=== PATIENT | female | born 1990 | race Caucasian/White ===

== ENCOUNTER 2023-12-24 10:13 | Emergency (ER) | payer OTHER, SELFPAY ==
[2023-12-24 10:28] VITALS: BP 155/115
[2023-12-24 11:07] VITALS: BMI 27.4
[2023-12-24 11:11] VITALS: BP 144/99
[2023-12-24 12:02] VITALS: BP 136/100
[2023-12-24 12:12] LABS: % Basophils 0.1 % (0-2); % Immature Granulocytes 0.5 % (0-0.5); % Lymphocytes 8.8 % (20.5-51.1); % Monocytes 9.5 % (1.7-9.3); % Neutrophils 81.1 % (42.2-75.2); Absolute Immature Granulocytes 0.1 10^3/uL (0-0.05); Absolute Lymphocytes 0.9 10^3/uL (1.2-3.4); Absolute Neutrophils 8.3 10^3/uL (1.4-6.5); Hematocrit 38.2 % (37.0-47.0); Hemoglobin 12.3 g/dL (12.0-16.0); Mean Corp Hgb Conc. 32.2 g/dL (33.0-37.0); Mean Corpuscular Hgb 32.4 pg (27.0-31.0); Mean Corpuscular Volume 100.5 fL (81.0-99.0); Mean Platelet Volume 8.8 fL (7.4-10.4); Nucleated Red Blood Cells % 0 %; Platelet Count 268 10^3/uL (130-400); Red Cell Dist. Width 12.9 % (11.5-14.5); White Blood Cell Count 10.2 10^3/uL (4.8-10.8)
[2023-12-24 12:26] LABS: ALT (SGPT) 60 U/L (0-35); AST (SGOT) 77 U/L (14-36); Albumin 4.3 g/dl (3.5-5.0); Alkaline Phosphatase 67 U/L (38-126); Blood Urea Nitrogen 15 mg/dl (7-17); Calcium 9.8 mg/dl (8.4-10.2); Carbon Dioxide 26 mmol/L (22-30); Chloride 100 mmol/L (98-107); Estimated Creatinine Clearance 111 ml/min; Glucose 77 mg/dl (70-99); Potassium 4.3 mmol/L (3.5-5.1); Sodium 137 mmol/L (135-145); Total Bilirubin 0.3 mg/dl (0.2-1.3); Total Protein 7.3 g/dl (6.3-8.2); eGFR > 60.00
[2023-12-24 13:00] VITALS: BP 113/87
--- NOTE | 2023-12-24 13:32 | ED.GENMED ---
History of Present Illness
General
Chief Complaint: Numbness
Source: patient
Exam Limitations: none
Time Seen by Provider: 12/24/23 11:15
Travel History
Have you had any contact with someone who has COVID-19?: No
Do you have any symptoms of coronavirus? Fever > 100 degrees, chills, cough, shortness of breath, sore throat, loss of taste or smell, muscle aches, or headache?: No
History of Present Illness
History of Present Illness:
33-year-old female who presents with numbness to her left foot. She states a little bit in the left anterior pruett but down to the top of her left foot. No other symptoms. Denies any symptoms in the right lower extremity. No symptoms in the
proximal leg. No symptoms in the upper extremities. No facial symptoms. Patient missed that last night she was drinking with a friend and also took 2 Percocet. The patient does admit to a history of anxiety and is on Xanax. She denies pain.
She denies motor weakness. No low back pain
Past History
Past History
ED Past Medical History: Psychiatric (Anxiety, depression, PTSD)
Social History
Alcohol: Occasional
Phy Exam
Physical Exam
Physical Exam:
CONSTITUTIONAL Patient alert and oriented to person, place and time. Well-appearing. Vital signs reviewed.
HEAD atraumatic, normocephalic.
EYES eyelids normal to inspection, Pupils equally round and reactive to light, Extraocular muscles intact, Conjunctiva normal, Sclera normal.
NECK normal range of motion, Trachea midline, no jugular venous distention.
RESPIRATORY CHEST No respiratory distress noted, Chest expansion equal
BACK normal inspection, no obvious deformities
UPPER EXTREMITY range of motion normal, Motor strength normal, no cyanosis, no edema.
LOWER EXTREMITY range of motion normal, Motor strength normal, no cyanosis, no edema. Normal bilateral dorsalis pedis pulses. Feet bilaterally are warm and well-perfused. She reports gross numbness to touch in the dorsal portion of the left foot
and the lateral and anterior portion of the left lower extremity. Calf and medial aspect of the lower extremity is normal. The calcaneus is normal to touch and the medial aspect of the left foot is normal to touch (normal sensation)
NEURO Speech normal, No focal motor deficits, [place] coma scale 15, Memory normal, Cranial Nerves intact to screening exam.
SKIN skin warm, dry, and normal in color.
PSYCHIATRIC patient oriented to person place and time, Normal affect.
Course
Orders/Labs/Results
Orders:
Orders
12/24/23 11:52
Complete Blood Count/With Diff Urgent
Comprehensive Metabolic Panel Urgent
Abnormal Lab Results
12/24/23
11:52
RBC 3.80 L 10^6/uL
(4.20-5.40)
MCV 100.5 H fL
(81.0-99.0)
MCH 32.4 H pg
(27.0-31.0)
MCHC 32.2 L g/dL
(33.0-37.0)
Abs Immat Gran (auto) 0.1 H 10^3/uL
(0-0.05)
Absolute Neuts (auto) 8.3 H 10^3/uL
(1.4-6.5)
Absolute Lymphs (auto) 0.9 L 10^3/uL
(1.2-3.4)
Absolute Monos (auto) 1.0 H 10^3/uL
(0.1-0.6)
Neutrophils % 81.1 H %
(42.2-75.2)
Lymphocytes % 8.8 L %
(20.5-51.1)
Monocytes % 9.5 H %
(1.7-9.3)
AST 77 H U/L
(14-36)
ALT 60 H U/L
(0-35)
12/24/23 11:52
12/24/23 11:52
Vital Signs
Initial and Last Documented VS:
Initial Vital Signs
Temp Pulse Resp BP Pulse Ox
98.5 F 134 20 155/115 97
12/24/23 10:28 12/24/23 10:28 12/24/23 10:28 12/24/23 10:28 12/24/23 10:28
Last Documented Vital Signs
Temp Pulse Resp BP Pulse Ox
98.5 F 113 12 113/87 92
12/24/23 10:28 12/24/23 13:15 12/24/23 13:15 12/24/23 13:00 12/24/23 13:15
MDM/Problems Addressed
MDM/Problems Addressed:
Numbness
*Pulse Oximetry
Patient hypoxic: no
*Critical Care Note
Total Time (30-74mins, 75-104mins- exclusive of procedures): Not Applicable
Data Reviewed
Source: patient
Further Testing Considered But Not Given:
Consider low back or brain imaging but symptoms are very localized to left lower extremity nerve distribution
Patient Management
Escalation/DeEscalation of care consider admission/obs:
Question whether this is neuropraxia (sensory) as there is no other findings and no motor findings. She has normal perfusion. She did take Percocet last night. She also admits her cat slept on her legs. For now I recommended monitoring as
outpatient. Anticipate improvement over the next 24 to 48 hours. Recommended PCP follow-up for further workup if symptoms persist. No clinical indication for imaging as I do not suspect cauda equina syndrome or brain related cause.
ED Attending Note
-
Portions of this chart may have been created with voice recognition software.� Occasional wrong word or��sound alike� substitutions may have occurred due to the inherent limitations of voice recognition software.
Discharge Plan
Departure
Patient Disposition: Home (Routine Discharge)
Date of Disposition: 12/24/23
Time of Disposition: 13:39
Patient with high blood pressure during this ER visit?: Yes
Discharge Problem:
Paresthesia
Instructions: Paresthesia (DC), BLOOD PRESSURE
Referrals:
Christopher Lara DO [Family Provider] -
Activity Restrictions/Additional Instructions:
Please see your doctor in the next 3 to 5 days for follow-up and reevaluation. Return immediately for worsening symptoms, numbness that is progressive, motor weakness, or any other concerns. If symptoms persist, further workup including an MRI may
be necessary.
Interventions
Interventions:
*Risk Screen - Suicide Last Done: 12/24/23 11:07
*General Assessment Last Done: 12/24/23 11:07
*Neglect/Abuse Screening Last Done: 12/24/23 11:07
ED- Fall Risk Assessment Last Done: 12/24/23 11:07
*ED COVID-19 Vaccine History Last Done: 12/24/23 10:28
ED- Neurological Assessment Last Done: 12/24/23 11:07
Discharge Date and Time
Print Language: BAHAMIAN
== END 2023-12-24 14:01 | disposition home or self-care (01) ==
LOC: EMR 10:13
PROVIDERS: EMERGENCY PHYSICIAN Emergency Medicine; FAMILY PHYSICIAN Family Medicine
DX: R20.2 Paresthesia of skin (principal); F41.9 Anxiety disorder, unspecified; F32.A Depression, unspecified; F43.10 Post-traumatic stress disorder, unspecified
CPT/HCPCS: 99283; 80053; 85025

== ENCOUNTER 2023-12-25 16:55 | Inpatient (IN) | payer OTHER, SELFPAY ==
[2023-12-25] VITALS (7 sets, daily range): BP systolic 133–172; BP diastolic 91–119; BMI 26.4
[2023-12-25 13:12] LABS: % Basophils 0.4 % (0-2); % Eosinophils 0.1 % (0-6); % Immature Granulocytes 0.3 % (0-0.5); % Lymphocytes 14.2 % (20.5-51.1); % Monocytes 8.8 % (1.7-9.3); % Neutrophils 76.2 % (42.2-75.2); Absolute Basophils 0.1 10^3/uL (0-0.2); Absolute Lymphocytes 1.8 10^3/uL (1.2-3.4); Absolute Monocytes 1.1 10^3/uL (0.1-0.6); Absolute Neutrophils 9.6 10^3/uL (1.4-6.5); Hematocrit 36.8 % (37.0-47.0); Hemoglobin 12.5 g/dL (12.0-16.0); Mean Corpuscular Hgb 32.4 pg (27.0-31.0); Mean Corpuscular Volume 95.3 fL (81.0-99.0); Mean Platelet Volume 8.6 fL (7.4-10.4); Nucleated Red Blood Cells % 0 %; Platelet Count 276 10^3/uL (130-400); Red Blood Cell Count 3.86 10^6/uL (4.20-5.40); Red Cell Dist. Width 12.6 % (11.5-14.5); White Blood Cell Count 12.7 10^3/uL (4.8-10.8)
[2023-12-25 13:22] LABS: HCG, Serum Qualitative Screen Negative
[2023-12-25 13:24] LABS: ALT (SGPT) 57 U/L (0-35); AST (SGOT) 47 U/L (14-36); Alkaline Phosphatase 75 U/L (38-126); Blood Urea Nitrogen 7 mg/dl (7-17); Calcium 9.4 mg/dl (8.4-10.2); Carbon Dioxide 24 mmol/L (22-30); Chloride 99 mmol/L (98-107); Glucose 106 mg/dl (70-99); Potassium 3.8 mmol/L (3.5-5.1); Sodium 131 mmol/L (135-145); Total Bilirubin 0.4 mg/dl (0.2-1.3); eGFR > 60.00
[2023-12-25 13:41] LABS: Troponin I 0.214 ng/ml
[2023-12-25 13:46] LABS: D-Dimer 0.43 ug/mlFEU (0.00-0.50)
--- NOTE | 2023-12-25 14:18 | ED.GENMED ---
History of Present Illness
<Louis Becker PA-C - Last Filed: 12/25/23 17:00>
General
Chief Complaint: Chest Pain
Source: patient
Time Seen by Provider: 12/25/23 12:45
Travel History
Have you had any contact with someone who has COVID-19?: No
Do you have any symptoms of coronavirus? Fever > 100 degrees, chills, cough, shortness of breath, sore throat, loss of taste or smell, muscle aches, or headache?: No
History of Present Illness
History of Present Illness:
33-year-old female with past medical history of anxiety, depression, PTSD presenting back to the emergency department after being seen in this emergency room yesterday for left foot paresthesia, notes that the paresthesia is improved however last
night into this morning she developed substernal chest pain that she states is unrelieved with position, palpation and worsens with deep inspiration or when laying reclined or on her neck. Patient denies any history of cardiac related issues. She
has no recent illnesses including any viral symptoms over the last few weeks. She denies any current fevers, chills, rigors, cough, hemoptysis, palpitations, lower extremity edema or pain. She does note father has a history of cardiac disease
although notes he has multiple medical conditions. She did not take anything for pain prior to arrival. No other concerns at this time.
Past History
<Louis Becker PA-C - Last Filed: 12/25/23 17:00>
Past History
ED Past Medical History: Psychiatric (Anxiety, depression, PTSD)
ED Past Surgical History: None
Social History
Tobacco: Vaping
Alcohol: Occasional
Drug: None
Personal: Single
Living: with family
Employment: Employed
Review of Systems
<Louis Becker PA-C - Last Filed: 12/25/23 17:00>
Review of Systems
All Other Systems: ROS reviewed and negative except as documented in HPI and ROS
Phy Exam
<Louis Becker PA-C - Last Filed: 12/25/23 17:00>
Physical Exam
Physical Exam:
GENERAL: Alert , in no apparent distress
EYE: conjunctiva clear
NECK: Supple
ENT: o/p clr, mmm.
CARDIAC: Regular rate and rhythm
LUNGS: Clear breath sounds bilaterally, no acute respiratory distress, no wheezes/rales/rhonchi, chest wall no focal tenderness
Abdomen: Soft, nontender, nondistended
NEUROLOGICAL: Alert and oriented
SKIN: Warm and dry, skin intact.
MUSCULOSKELETAL: well perfused. No edema
PSYCH: Normal and appropriate interaction.
Scores
<Louis Becker PA-C - Last Filed: 12/25/23 17:00>
Heart Failure Risk
Heart Failure Risk Score: Not Applicable
Heart Score for Chest Pain Patients
STEMI patient?: No
History: Moderately Suspicious
ECG: Nonspecific Repolarization
Age: </= 45 years
Risk Factors: 1 or 2 Risk Factors
Troponin: >1 - <3 x Normal Limit
Heart Score for Chest Pain Patients: 4
Heart Score Risk: 20.3% MACE over next 6 weeks
Withdrawal Assessment of Alcohol
Withdrawal Assessment Completed?: Not applicable
<Lenin Barrera MD - Last Filed: 12/26/23 08:50>
Heart Score for Chest Pain Patients
Heart Score for Chest Pain Patients: 4
Heart Score Risk: 20.3% MACE over next 6 weeks
Course
<Louis Becker PA-C - Last Filed: 12/25/23 17:00>
Orders/Labs/Results
Orders:
Orders
12/25/23 Breakfast
Regular
At Your Request: Full Participation
12/25/23 11:47
EKG [Electrocardiogram (*1)] Urgent
Reason for Study: Chest Pain
EKG- Treatment ONCE
12/25/23 12:47
Test Result ONCE
12/25/23 13:02
Complete Blood Count/With Diff Urgent
Comprehensive Metabolic Panel Urgent
D-Dimer Urgent
Folate Urgent
Comment: ADD
Free T4 Urgent
Comment: ADD
HCG, Serum Qualitative Screen Urgent
TSH Urgent
Troponin I Urgent
Vitamin B12 Urgent
Comment: ADD
12/25/23 13:45
Aspirin Chewable [Low Strength Aspirin] 324 mg PO NOW STA
12/25/23 13:46
Nitroglycerin Sublingual [Nitrostat (Sublingual)] 0.4 mg SL [id number] PRN
12/25/23 13:49
CT Chest Pe Study Urgent
Comment:
Reason For Exam: chest pain, elevated troponin
12/25/23 14:06
Electrocardiogram (*1) Urgent
Reason for Study: Chest Pain
EKG- Treatment ONCE
12/25/23 15:00
COVID-19 Antigen Urgent
Source: Nasal Swab
12/25/23 15:35
Echo 2D MMode Color/Doppler Urgent
Reason for Study: elevated troponin
12/25/23 15:51
Add On- LAB Urgent
Tests Added?: Free T4
12/25/23 16:23
Add On- LAB Routine
Tests Added?: vitamin b12, folic acid
12/25/23 16:36
Admit/Transfer Patient As Directed
Co-Sign Provider:
Level of Care: Inpatient admission
Assign to:: Telemetry
Physician / Group: Griffin
Diagnosis: Baldev Pain, Elevated Troponin
Reason for Telemetry: Chest Pain syndromes
Date to Stop Telemetry: 12/27/23
Time to Stop Telemetry: 11:00
Reason for Hospitalization: Cardiology consult
Expected length of stay greater than two midnights?: Yes
ELOS- Estimated Length of Stay in days: 3
I certify the patient meets the requirements for IP care: Yes
12/25/23 16:39
Code Status As Directed
Resuscitation Status: Full Code
12/25/23 16:52
Procalcitonin Urgent
PCT Algorithmm Indication: Respiratory
Troponin I Urgent
12/25/23 17:50
0.9% Sodium Chloride [Nss (Preservative Free)] See Protocol IV PRN PRN
Acetaminophen [Tylenol] 650 mg PO Q4HPRN PRN
FOLic ACID [Folvite] 1 mg 0.9% Sodium Chloride 50 ml [Nss] 50 ml IV DAILYPRN
Lorazepam [Ativan] 1 mg IV Q1HPRN PRN
Lorazepam [Ativan] 1 mg PO Q2HPRN PRN
Lorazepam [Ativan] 2 mg IV Q1HPRN PRN
12/25/23 17:50
CARDIOLOGY CONSULT Routine
Consulting Provider: Apolinar Alves
Was physician already notified: Yes
Case Management Consult Once
Case Management Consult: Other
Comment: Substance abuse counseling
DIETARY CONSULT Routine
Reason for Consult: Nutrition support, possible refeeding guidelines
Activity As Directed
Activity Level: Out of Bed-Early Mobility
With Assistance
I&O [Intake/ Output] As Directed
Frequency: q12h
MSAS SCORE As Directed
MSAS Score 0-4: Repeat MSAS every 2 hours until 0-4 for three consecutive assessments, then every 4 hours x 48
hours.
MSAS Score 5-7: For MILD withdrawl symptoms. Repeat MSAS and RASS every 2 hours
MSAS Score 8-11: For MODERATE withdrawal symptoms. Repeat MSAS and RASS every 1 hour. Consider ICU or IMU
level of care.
MSAS Score > 11: For SEVERE withdrawal symptoms. Repeat MSAS and RASS every 1 hour. Notify provider, consider
ICU level of care.
MSAS Additional Instructions: If no improvement or no decrease in score from severe to moderate within 12
hours, consult psychiatry
MSAS Notify Provider: Notify provider if patient requires more than 10 mg of Lorazepam in eight hour period.
Vital Signs As Directed
Frequency: Per unit guidelines
Weight As Directed
Frequency: Daily
DX Deep Vein Thrombosis Video Routine
12/25/23 18:00
Enoxaparin Sodium [Lovenox] 40 mg SC QPM
12/25/23 18:07
Urine Drug Abuse Screen Urgent
Date Specimen was Collected: 12/25/23
Time Specimen was Collected: 18:04
12/25/23 20:00
Thiamine Injection 200 mg IV Q12
12/25/23 22:00
Clonidine [Catapres] 0.1 mg PO HS
Venlafaxine [Effexor] 75 mg PO HS
12/26/23 05:02
Basic Metabolic Panel IN AM
Complete Blood Count/No Diff IN AM
Magnesium IN AM
12/26/23 08:00
Alprazolam [Xanax] 0.5 mg PO DAILY
FOLic ACID [Folvite] 1 mg PO DAILY
12/27/23 11:00
DC Protocol for Telemetry ONCE
12/28/23 20:00
Thiamine HCl [Vitamin B1] 100 mg PO BID
Abnormal Lab Results
12/25/23 12/25/23
13:02 16:52
WBC 12.7 H 10^3/uL
(4.8-10.8)
RBC 3.86 L 10^6/uL
(4.20-5.40)
Hct 36.8 L %
(37.0-47.0)
MCH 32.4 H pg
(27.0-31.0)
Absolute Neuts (auto) 9.6 H 10^3/uL
(1.4-6.5)
Absolute Monos (auto) 1.1 H 10^3/uL
(0.1-0.6)
Neutrophils % 76.2 H %
(42.2-75.2)
Lymphocytes % 14.2 L %
(20.5-51.1)
Sodium 131 L mmol/L
(135-145)
Glucose 106 H mg/dl
(70-99)
AST 47 H U/L
(14-36)
ALT 57 H U/L
(0-35)
Troponin I 0.214 H* ng/ml 0.163 H* ng/ml
Procalcitonin 0.73 H ng/ml
(0.0-0.25)
TSH 0.10 L uIU/ml
(0.47-4.68)
12/25/23 13:02
12/25/23 13:02
Vital Signs
Initial and Last Documented VS:
Initial Vital Signs
Temp Pulse Resp BP Pulse Ox
97.6 F 112 16 172/100 99
12/25/23 11:43 12/25/23 11:43 12/25/23 11:43 12/25/23 11:43 12/25/23 11:43
Last Documented Vital Signs
Temp Pulse Resp BP Pulse Ox
97.6 F 81 16 151/108 100
12/26/23 04:00 12/26/23 05:15 12/26/23 04:00 12/26/23 05:08 12/26/23 04:00
Independent Beauty Consultant consulted with Physician
Independent Beauty Consultant consulted with physician?: Yes
Name of Physician Consulted: oHlly
[place];Lenin Barrera MD - Last Filed: 12/26/23 08:50>
Orders/Labs/Results
Orders:
Orders
12/25/23 Breakfast
Regular
At Your Request: Full Participation
12/25/23 11:47
EKG [Electrocardiogram (*1)] Urgent
Reason for Study: Chest Pain
EKG- Treatment ONCE
12/25/23 12:47
Test Result ONCE
12/25/23 13:02
Complete Blood Count/With Diff Urgent
Comprehensive Metabolic Panel Urgent
D-Dimer Urgent
Folate Urgent
Comment: ADD
Free T4 Urgent
Comment: ADD
HCG, Serum Qualitative Screen Urgent
TSH Urgent
Troponin I Urgent
Vitamin B12 Urgent
Comment: ADD
12/25/23 13:45
Aspirin Chewable [Low Strength Aspirin] 324 mg PO NOW STA
12/25/23 13:46
Nitroglycerin Sublingual [Nitrostat (Sublingual)] 0.4 mg SL [id number] PRN
12/25/23 13:49
CT Chest Pe Study Urgent
Comment:
Reason For Exam: chest pain, elevated troponin
12/25/23 14:06
Electrocardiogram (*1) Urgent
Reason for Study: Chest Pain
EKG- Treatment ONCE
12/25/23 15:00
COVID-19 Antigen Urgent
Source: Nasal Swab
12/25/23 15:35
Echo 2D MMode Color/Doppler Urgent
Reason for Study: elevated troponin
12/25/23 15:51
Add On- LAB Urgent
Tests Added?: Free T4
12/25/23 16:23
Add On- LAB Routine
Tests Added?: vitamin b12, folic acid
12/25/23 16:36
Admit/Transfer Patient As Directed
Co-Sign Provider:
Level of Care: Inpatient admission
Assign to:: Telemetry
Physician / Group: Griffin
Diagnosis: Baldev Pain, Elevated Troponin
Reason for Telemetry: Chest Pain syndromes
Date to Stop Telemetry: 12/27/23
Time to Stop Telemetry: 11:00
Reason for Hospitalization: Cardiology consult
Expected length of stay greater than two midnights?: Yes
ELOS- Estimated Length of Stay in days: 3
I certify the patient meets the requirements for IP care: Yes
12/25/23 16:39
Code Status As Directed
Resuscitation Status: Full Code
12/25/23 16:52
Procalcitonin Urgent
PCT Algorithmm Indication: Respiratory
Troponin I Urgent
12/25/23 17:50
0.9% Sodium Chloride [Nss (Preservative Free)] See Protocol IV PRN PRN
Acetaminophen [Tylenol] 650 mg PO Q4HPRN PRN
FOLic ACID [Folvite] 1 mg 0.9% Sodium Chloride 50 ml [Nss] 50 ml IV DAILYPRN
Lorazepam [Ativan] 1 mg IV Q1HPRN PRN
Lorazepam [Ativan] 1 mg PO Q2HPRN PRN
Lorazepam [Ativan] 2 mg IV Q1HPRN PRN
12/25/23 17:50
CARDIOLOGY CONSULT Routine
Consulting Provider: Apolinar Alves
Was physician already notified: Yes
Case Management Consult Once
Case Management Consult: Other
Comment: Substance abuse counseling
DIETARY CONSULT Routine
Reason for Consult: Nutrition support, possible refeeding guidelines
Activity As Directed
Activity Level: Out of Bed-Early Mobility
With Assistance
I&O [Intake/ Output] As Directed
Frequency: q12h
MSAS SCORE As Directed
MSAS Score 0-4: Repeat MSAS every 2 hours until 0-4 for three consecutive assessments, then every 4 hours x 48
hours.
MSAS Score 5-7: For MILD withdrawl symptoms. Repeat MSAS and RASS every 2 hours
MSAS Score 8-11: For MODERATE withdrawal symptoms. Repeat MSAS and RASS every 1 hour. Consider ICU or IMU
level of care.
MSAS Score > 11: For SEVERE withdrawal symptoms. Repeat MSAS and RASS every 1 hour. Notify provider, consider
ICU level of care.
MSAS Additional Instructions: If no improvement or no decrease in score from severe to moderate within 12
hours, consult psychiatry
MSAS Notify Provider: Notify provider if patient requires more than 10 mg of Lorazepam in eight hour period.
Vital Signs As Directed
Frequency: Per unit guidelines
Weight As Directed
Frequency: Daily
DX Deep Vein Thrombosis Video Routine
12/25/23 18:00
Enoxaparin Sodium [Lovenox] 40 mg SC QPM
12/25/23 18:07
Urine Drug Abuse Screen Urgent
Date Specimen was Collected: 12/25/23
Time Specimen was Collected: 18:04
12/25/23 20:00
Thiamine Injection 200 mg IV Q12
12/25/23 22:00
Clonidine [Catapres] 0.1 mg PO HS
Venlafaxine [Effexor] 75 mg PO HS
12/26/23 05:02
Basic Metabolic Panel IN AM
Complete Blood Count/No Diff IN AM
Magnesium IN AM
12/26/23 08:00
Alprazolam [Xanax] 0.5 mg PO DAILY
FOLic ACID [Folvite] 1 mg PO DAILY
12/27/23 11:00
DC Protocol for Telemetry ONCE
12/28/23 20:00
Thiamine HCl [Vitamin B1] 100 mg PO BID
Abnormal Lab Results
12/25/23 12/25/23
13:02 16:52
WBC 12.7 H 10^3/uL
(4.8-10.8)
RBC 3.86 L 10^6/uL
(4.20-5.40)
Hct 36.8 L %
(37.0-47.0)
MCH 32.4 H pg
(27.0-31.0)
Absolute Neuts (auto) 9.6 H 10^3/uL
(1.4-6.5)
Absolute Monos (auto) 1.1 H 10^3/uL
(0.1-0.6)
Neutrophils % 76.2 H %
(42.2-75.2)
Lymphocytes % 14.2 L %
(20.5-51.1)
Sodium 131 L mmol/L
(135-145)
Glucose 106 H mg/dl
(70-99)
AST 47 H U/L
(14-36)
ALT 57 H U/L
(0-35)
Troponin I 0.214 H* ng/ml 0.163 H* ng/ml
Procalcitonin 0.73 H ng/ml
(0.0-0.25)
TSH 0.10 L uIU/ml
(0.47-4.68)
12/25/23 13:02
12/25/23 13:02
Vital Signs
Initial and Last Documented VS:
Initial Vital Signs
Temp Pulse Resp BP Pulse Ox
97.6 F 112 16 172/100 99
12/25/23 11:43 12/25/23 11:43 12/25/23 11:43 12/25/23 11:43 12/25/23 11:43
Last Documented Vital Signs
Temp Pulse Resp BP Pulse Ox
97.6 F 81 16 151/108 100
12/26/23 04:00 12/26/23 05:15 12/26/23 04:00 12/26/23 05:08 12/26/23 04:00
<Louis Becker PA-C - Last Filed: 12/25/23 17:00>
MDM/Problems Addressed
Differential Diagnosis Includes:
Pleurisy or muscular etiology, PE considered given patient does vape as well as takes oral contraceptive pills, less risk factors for ACS, hypertensive urgency
MDM/Problems Addressed:
33-year-old female presenting emergency department for evaluation of chest pain that began earlier this morning/yesterday evening. Seen in this emergency department yesterday for left lower extremity paresthesia but reportedly did not have any of
the chest related symptoms yesterday on to the ER. She does have risk factors for PE including oral contraceptives and vapes so will obtain troponin as well as D-dimer. Patient's blood pressure was noted to be elevated in triage in addition to
heart rate which the heart rate was improved during my exam. Will continue to monitor patient's blood pressure. Lab work ordered. Will order imaging based off of D-dimer. Disposition pending.
<Louis Becker PA-C - Last Filed: 12/25/23 17:00>
*Radiology
Radiology exam reviewed: radiology read reviewed
*Pulse Oximetry
Patient hypoxic: no
*EKG
Interpreted by ED Provider?: Yes
Comparison EKG: no comparison EKG present
Heart Rate: 94
Rate: normal
Rhythm: sinus
[place]: normal axis
Ischemia: T-wave inversion (Lead III)
*Property Management Assistant Interpretation
Rate: normal
Rhythm: sinus
*Critical Care Note
Total Time (30-74mins, 75-104mins- exclusive of procedures): 30
comment:
Critical care statement: A total of 30 minutes of critical care time was provided for this patient. This includes management of unstable vital signs, evaluation of the patient at bedside, reviewing the patient's pertinent medical records, discussion
with consultants, review of old EKGs and review of pertinent medical records. This time with separate from time utilized to perform the aforementioned documented procedures
Data Reviewed
Review of Other/Old Records Reveals: Labs
Source: patient
<Louis Becker PA-C - Last Filed: 12/25/23 17:00>
Comment
Comment:
Patient's troponin came back significantly elevated at 0.214. 324 mg of aspirin was ordered as well as sublingual nitroglycerin for as needed chest pain. Stat CTA of the chest was ordered to rule out PE. Plan will be to admit patient pending
findings of the CT and discussion with cardiology.
Patient Management
Discussion with other providers: Hospitalist and Central Supply Supervisor
Escalation/DeEscalation of care consider admission/obs:
Patient's troponin came back significantly elevated at 0.214. Her CTA ultimately came back negative for pulmonary embolism but did show a right upper lobe pneumonia. Patient is afebrile, no URI-like symptoms but did note she had 2 days of a
intermittent nonproductive cough. Unclear as to if this is the potential cause for her chest discomfort but given her significantly elevated troponin patient will need to be admitted for troponin trending and rotation. I notified hospitalist team
who accepts for continued evaluation and treatment as well as cardiology team who will consult.
ED Attending Note
<Louis Becker PA-C - Last Filed: 12/25/23 17:00>
-
Portions of this chart may have been created with voice recognition software.� Occasional wrong word or��sound alike� substitutions may have occurred due to the inherent limitations of voice recognition software.
<Lenin Barrera MD - Last Filed: 12/26/23 08:50>
ED Attending Note
I performed the substantive portion of visit, reviewed & personally made and approve the management plan that is documented in note by myself or KATHERYN.: Yes
ED Attending Note:
Patient presented to ED with nonspecific anterior chest wall pain starting today. Patient was evaluated in ED recently secondary to extremity numbness sensation. Denies shortness of breath. Denies fever or chills. Denies recent URI symptoms.
Denies nausea or vomiting. Denies diarrhea. Denies rash. Denies headache. Denies dizziness. Denies recent travel. Denies sick contact. Denies previous history of similar symptoms.
Blood work reviewed, significant for elevated troponin. CTA ordered to evaluate for potential pulm embolism.
CTA: No PE. Pneumonia noted.
Patient will be admitted for further evaluation and treatment.
Discharge Plan
Departure
Patient Disposition: Admit
Date of Disposition: 12/25/23
Time of Disposition: 14:56
Presentation/result/management discussed w/ accepting MD/DO: Hospitalist
Discharge Problem:
Chest pain, Elevated troponin
Interventions
Interventions:
*Risk Screen - Suicide Last Done: 12/25/23 11:43
*General Assessment Last Done: 12/25/23 11:43
*Neglect/Abuse Screening Last Done: 12/25/23 11:43
ED- Fall Risk Assessment Last Done: 12/25/23 15:26
*ED COVID-19 Vaccine History Last Done: 12/25/23 14:06
*Nursing Disposition Last Done: 12/25/23 18:03
ED- Cardiac Assessment Last Done: 12/25/23 13:05
Discharge Date and Time
Discharge Date/Time: 12/25/23 18:04
[2023-12-25] MEDS: LOW STRENGTH ASPIRIN 324 MG PO (14:39)
[2023-12-25 15:22] LABS: COVID-19 Antigen Negative (Negative)
--- NOTE | 2023-12-25 16:08 | CON.CAR ---
Addendum entered and electronically signed by Apolinar Alves DO 12/25/23 21:42:
I saw and examined the patient.
The Document Control Manager's note was reviewed and I agree with the note.
Comment:
Plan:
Mild troponin possible minna-myocarditis
Check echo
primary service to eval and tx PNA
Consider NSAIDs pending clinical course
Discussed with primary service
Original Note:
Consultation
Consultation Request
Date/Time Consultation Performed: 12/25/23
Requesting Provider: Louis Becker PA-C
Performing Provider: Lena Calero PA-C for Dr. Alves
Reason for Consultation: elevated troponin, chest pain
Medical History
-
Chief Complaint: CP
History of Present Illness:
Patient is a 33 yo F with PMH of anxiety/depression, PTSD who was seen in ER yesterday for evaluation of L foot paraesthesias and was discharged to home. Of note, she had taken percocet the night prior. She reports she then slept from approximately
2PM to 9AM however was waking up intermittently with central chest discomfort. Reports worse with leaning forward or lying flat, improved with sitting up straight. Worse with coughing. Denies fevers however does report some diaphoresis overnight.
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 Trop elevated at 0.[address] depression in 3, aVF, V1, V2. Chest CTA negative for
PE however does show PNA. Cardiology consulted for eval. She does vape and has occasional ETOH however denies illicit drug use. She states the aspirin given to her in ER did not significantly improve her symptoms. Remains with 5-6/10 chest
discomfort.
PMH:
ER visit 12/24/23 for L foot paraesthesias
Anxiety
Depression
PTSD
Tobacco use - vapes
Past Medical History
Past Medical History: Other (in HPI)
Social History
Tobacco: Vaping
Alcohol: Occasional
Personal: Partner
Living: With Family
Employment: Employed
Allergies / Home Medications
Allergy/AdvReac Type Severity Reaction Status Date / Time
No Known Allergies Allergy Unverified 12/24/23 10:29
�Medication �Instructions �Recorded �Confirmed �Type
alprazolam 0.5 mg tablet (Xanax) 0.5 mg PO DAILY 12/25/23 12/25/23 History
clonidine HCl 0.1 mg tablet 0.1 mg PO HS 12/25/23 12/25/23 History
norgestimate 0.25 mg-ethinyl 1 tab PO DAILY 12/25/23 12/25/23 History
estradiol 35 mcg tablet (Sariah)
venlafaxine 75 mg tablet 75 mg PO HS 12/25/23 12/25/23 History
Review of Systems
-
History Source: Patient
All other systems: Negative unless noted
Physical Exam
Vital Signs
Temp Pulse Resp BP Pulse Ox
97.6 F 99 23 133/91 99
12/25/23 11:43 12/25/23 14:25 12/25/23 14:25 12/25/23 14:25 12/25/23 11:43
Lab Results
12/25/23 13:02
12/25/23 13:02
Troponin I 0.214 ng/ml H* 12/25/23 13:02
Physical Exam
General: No Apparent Distress and Comfortable
HEENT: Anicteric and Moist Mucous Membranes
Respiratory: Clear and Non Labored Respirations
Cardiac: S1/S2 and Regular Rhythm
GI: Soft, Non Tender, Non Distended and Normal Bowel Sounds
Musculoskeletal: No Clubbing, No Cyanosis and No Edema
Skin: Warm and Dry
Neuro: AO x 3
Impression / Plan
-
Primary Armored Cable Machine Operator: none prior to admission
Assessment:
Presentation with CP
Elevated troponin
Leukocytosis
PNA by chest CTA
hyponatremia
Mild LFT elevation
Low TSH
ER visit 12/24/23 for L foot paraesthesias
Anxiety
Depression
PTSD
Tobacco use - vapes
ECHO 12/25/23: pending
Plan:
-Patient presents to ER with central chest pain over last 24 hours.
-chest CT negative for PE, but showed RUL PNA. treatment per primary service. no sick contacts. covid negative
-Trop 0.2. trend to peak. she remains with chest discomfort
-given 325mg asa in ER
-EKG also abnormal with ST inversion/depression in III, aVF, V1, V2. no prior to compare
-? pericarditis
-check urgent echo
-check UDS
-further recs based on results of echo
-repeat EKG in AM
-d/w hospitalist BRITTANY
Data Reviewed
-
EKG: Tracing Personally Visualized and interpreted
CT Scan: Report Reviewed by me
Labs: Labs Reviewed by me
Old Records: Reviewed
--- NOTE | 2023-12-25 16:19 | HPS.HSE ---
Family Physician
-
Family Physician: Christopher Lara
Chief Complaint
-
Chest Pain
History of Present Illness
Patient is a 33 y/o female past medical history of anxiety/depression/PTSD who presents with chest pain. Patient was seen here in the [facility] Emergency Department yesterday for bilateral foot numbness. She notes that this is improving
but her toes still feel numb. She reports last night she developed chest pain. She describes it as a constant pain that gets worse with a sharp stab when leaning forward or lying forward, but improves with sitting up. She reports when she leans
forward she has some shortness of breath due to severity of the pain. She denies any similar episodes in the past.
Medical History
Past Medical History
Past Medical History: Reports Other
Additional Past Medical History:
Anxiety/Depression/PTSD
Past Surgical History: Reports None
Social History
Tobacco: Vaping
Alcohol: Daily (1-5 drinks nightly)
Drug: Other (Patient states she did take a Perc-30 from a friend over the weekend, but does not typically use drugs)
Family History
Family History: Other (Father: Stroke, Parkinson Disease; Mother: Hypothyroidism)
Allergies / Home Medications
Allergies reflects when Allergies were last updated in [facility].
Home Medications with original date entered in [facility]
Allergy/Medication List:
Allergies
Allergy/AdvReac Type Severity Reaction Status Date / Time
No Known Allergies Allergy Unverified 12/24/23 10:29
Home Medications
alprazolam 0.5 mg tablet (Xanax) 0.5 mg PO DAILY 12/25/23
clonidine HCl 0.1 mg tablet 0.1 mg PO HS 12/25/23
norgestimate 0.25 mg-ethinyl estradiol 35 mcg tablet (Sariah) 1 tab PO DAILY 12/25/23
venlafaxine 75 mg tablet 75 mg PO HS 12/25/23
Review of Systems
-
A 12 point ROS was completed and negative except as noted: Yes
Constitutional: Denies Fever or Chills
Respiratory: Reports See HPI
Cardiac: Reports See HPI
Physical Exam
Vital Signs
Vital Signs
Temp Pulse Resp BP Pulse Ox
97.6 F 99 23 133/91 99
12/25/23 11:43 12/25/23 14:25 12/25/23 14:25 12/25/23 14:25 12/25/23 11:43
Physical Exam
General: Comfortable and Conversant
HEENT: Anicteric and Moist mucous membranes
Respiratory: Clear and Non Labored Respirations
Cardiac: S1/S2, Regular Rhythm and Other (Some tenderness to palpation right upper chest)
GI: Soft and Non Tender
Rectal: Deferred by Provider
Musculoskeletal: No Clubbing, No Cyanosis and No Edema
Skin: Warm and Dry
Neuro: Awake, Alert, Oriented and Nonfocal/grossly intact
Psych: Calm
Laboratory Results
-
12/25/23 13:02
12/25/23 13:02
Laboratory Results
Total Bilirubin 0.4 mg/dl (0.2-1.3) 12/25/23 13:02
AST 47 U/L (14-36) H 12/25/23 13:02
ALT 57 U/L (0-35) H 12/25/23 13:02
Alkaline Phosphatase 75 U/L (38-126) 12/25/23 13:02
Troponin I 0.214 ng/ml H* 12/25/23 13:02
Data Reviewed
-
CT Scan: Report Reviewed by me
Lab Data: Labs Reviewed by me
Impression/Plan
-
Chest Pain with Elevated Troponin
-ECG with some inverted T waves in III, V1 and V2
-Reviewed with Cardiology
-Check Echo
-Continue to trend troponin
Right Upper Lobe Pneumonia by CT scan
-Check Procalcitonin - If elevated start empiric antibiotics
Suppressed TSH
-Check Free T4
Anxiety/Depression/PTSD
-Continue Xanax, Clonidine and Venlafaxine
Alcohol Use Disorder
-Continue thiamine and folic acid
-Continue alcohol withdrawal protocol
DVT proph: Lovenox
Code Status: Full Code
[2023-12-25 16:50] LABS: Free T4 1.23 ng/dl (0.78-2.19)
--- NOTE | 2023-12-25 17:00 | W.PN.UPDATE ---
Addendum entered and electronically signed by Sudhir Moya MD 12/25/23 17:44:
Pro-Adelfo positive. Will start ceftriaxone and azithromycin. blood cx x 2
Original Note:
Update Note
Progress Note Update
This note is in addition to H and P
I saw and examined the patient.
The SITE LEADER or PA's note was reviewed and I agree with the note.
Comment: 33-year-old female with past medical show anxiety, depression, PTSD came to the hospital with chest pain. Per patient her chest pain is worse with breathing. Denies any fever/chills. Reports her pain is worse with leaning forward or
laying flat. EKG was consistent with ST depression in lead III, aVF, V1 and V2. CT scan was done which was negative for PE however did appear to have pneumonia. Check Pro-Adelfo, if positive then start antibiotics. Patient does vape and use
alcohol. Trend trops, check echo
General: Comfortable and Conversant
HEENT: Anicteric and Moist mucous membranes
Respiratory: Clear and Non Labored Respirations
Cardiac: S1/S2, Regular Rhythm and Other (tenderness to palpation right upper chest)
GI: Soft and Non Tender
Rectal: Deferred by Provider
Musculoskeletal: No Clubbing, No Cyanosis and No Edema
Neuro: Awake, Alert, Oriented and Nonfocal/grossly intact
Psych: Calm
[2023-12-25 17:32] LABS: Procalcitonin 0.73 ng/ml (0.0-0.25)
[2023-12-25 17:33] LABS: Troponin I 0.163 ng/ml
--- NOTE | 2023-12-25 18:13 | PTCARENOTE ---
patient admitted from ER with chest pain, patient stated sgking still has chest pain but much less than when she got to the ER. monitor placed, NSR, VSS, patient needed a blood draw, blood cultures drawn and urine specimen, all gotten and sent to lab.
patient is happy she can eat, menu given to patient and number to call. patient oriented to room and surroundings and call coreas.
[2023-12-25 18:25] LABS: Folate 14.6 ng/ml (2.76-20); Vitamin B12 414 pg/ml (239-931)
--- NOTE | 2023-12-25 18:29 | PTCARENOTE ---
patients BP elevated, TT Dr. Moya, did manual BP right 142/102 and left 140/110.Dr. Moya aware.
[2023-12-25 18:39] LABS: Alcohol None Detected
[2023-12-25 18:47] LABS: Amphetamines Negative (Negative); Barbiturates Negative (Negative); Benzodiazepines Positive (Negative); Buprenorphine Negative (Negative); Cocaine Positive (Negative); Marijuana Negative (Negative); Methadone Negative (Negative); Methamphetamines Negative (Negative); Opiates Negative (Negative); Phencyclidine Negative (Negative); Tricyclic Antidepressants Negative (Negative)
[2023-12-25 18:48] LABS: Troponin I 0.161 ng/ml
[2023-12-25] MEDS: LOVENOX 40 MG SC (18:56)
[2023-12-25] MEDS: ROCEPHIN 1000 MG IV (18:57)
[2023-12-25] MEDS: STERILE WATER FOR INJECTION 10 ML IV (18:57)
[2023-12-25] MEDS: FLUSH (NSS) 1 FLUSH IV (18:58)
[2023-12-25 19:03] LABS: Fentanyl, Urine Positive (Negative)
--- NOTE | 2023-12-25 19:12 | PTCARENOTE ---
TT Dr. Moya with results of urine positive for fentanyl, Benzo and cocaine. passed results on to oncoming RN.
[2023-12-25] MEDS: ZITHROMAX INFUSION 250 IV (20:53)
[2023-12-25] MEDS: THIAMINE INJECTION 200 MG IV (20:53)
[2023-12-25] MEDS: EFFEXOR 75 MG PO (21:12)
[2023-12-25] MEDS: CATAPRES 0.100000000000000006 MG PO (21:12)
[2023-12-26] VITALS (13 sets, daily range): BP systolic 130–159; BP diastolic 83–111; BMI 26.0
--- NOTE | 2023-12-26 01:44 | PTCARENOTE ---
Patient was able to participate in admission, denies pain/numbness in bl feet. Alert and compliant. With intermittent nausea. Able to walk to bathroom without assist.
[2023-12-26 05:24] LABS: Hematocrit 37.6 % (37.0-47.0); Hemoglobin 12.6 g/dL (12.0-16.0); Mean Corp Hgb Conc. 33.5 g/dL (33.0-37.0); Mean Corpuscular Hgb 32.1 pg (27.0-31.0); Mean Corpuscular Volume 95.7 fL (81.0-99.0); Mean Platelet Volume 8.7 fL (7.4-10.4); Platelet Count 289 10^3/uL (130-400); Red Blood Cell Count 3.93 10^6/uL (4.20-5.40); Red Cell Dist. Width 12.4 % (11.5-14.5)
[2023-12-26 05:46] LABS: Blood Urea Nitrogen 7 mg/dl (7-17); Calcium 9.3 mg/dl (8.4-10.2); Carbon Dioxide 26 mmol/L (22-30); Chloride 102 mmol/L (98-107); Estimated Creatinine Clearance 115 ml/min; Glucose 95 mg/dl (70-99); Potassium 3.8 mmol/L (3.5-5.1); Sodium 137 mmol/L (135-145); eGFR > 60.00
[2023-12-26] MEDS: FOLVITE 1 MG PO (08:33)
[2023-12-26] MEDS: XANAX 0.5 MG PO (08:33)
[2023-12-26] MEDS: THIAMINE INJECTION 200 MG IV ×2 (08:33→20:57)
--- NOTE | 2023-12-26 08:52 | W.PN.CARDCBS ---
Addendum entered and electronically signed by Elsa Rodriguez MD 12/26/23 13:40:
I saw and examined the patient.
The Telephone Exchange Operator's note was reviewed and I agree with the note.
Comment: Patient with ongoing chest discomfort this morning. In the setting of mildly elevated troponin, nonspecific ST-T wave changes on EKGs, decision was made to proceed with coronary angiogram to rule out obstructive CAD. We did discuss that
given her UDS was positive for multiple agents including cocaine, coronary vasospasm is also high on the differential.
After detailed informed consent discussing the risk and benefits, patient was agreeable and we decided to move forward with heart catheterization.
Her vital signs and lab work were reviewed. Patient has a flat affect, kept her eyes closed the entire time during the consent, normal S1 and S2, no acute distress, no murmurs, rubs or gallops, abdomen is soft, nontender, nondistended with active
bowel sounds, warm extremities without significant edema. Lungs were clear to auscultation bilaterally.
Echocardiogram was reviewed showing normal biventricular function without significant valvular disease. Left heart catheterization was completed. See heart cath report for full details. No obstructive coronary artery disease was identified.
Recommendations:
1. Wean radial band per protocol.
2. Strongly encouraged complete cessation from any recreational drug usage.
3. Plan to discharge home on daily baby aspirin and amlodipine 5 mg daily especially in the setting of baseline hypertension.
4. Cardiology outpatient follow-up will be set up.
5. Stable for discharge from a cardiac standpoint if no issues with cath access site.
6. Aggressive management of cardiovascular risk factors
Elsa Rodriguez MD, [facility], [facility]
Original Note:
Today's Communication / Plan
-
UDS positive for cocaine, fentanyl, benzos
echo with preserved EF
tentatively for cath today
Impression / Plan
-
Primary Top Cutter: none prior to admission
Assessment:
Presentation with CP
Elevated troponin
Leukocytosis
PNA by chest CTA
hyponatremia
Mild LFT elevation
Low TSH
ER visit 12/24/23 for L foot paraesthesias
Anxiety
Depression
PTSD
Tobacco use - vapes
Tox screen positive for benzos, cocaine, and fentanyl
ECHO 12/25/23: EF 55-60%, no significant valvular disease
Plan:
-Patient presents to ER with central chest pain over last 24 hours.
-chest CT negative for PE, but showed RUL PNA. procal positive. continue abx per primary service. no sick contacts. covid negative. O2 sat stable on RA
-EKG also abnormal with ST inversion/depression in III, aVF, V1, V2. no prior to compare. repeat this morning
-Trop peaked at 0.2 on admission and trending down
-UDS positive for cocaine, fentanyl, and benzos (she is prescribed xanax). she denies cocaine. states she took one 'perc 30' on Friday 12/22 and denies having a 'drug problem'
-given 325mg asa in ER. continue asa 81mg daily
-in SR upon review of tele overnight
-check CVE
-tentatively NPO for cath today with elevated troponin, abnormal EKG, chest pain, and + cocaine.
-echo with results as above, reviewed with patient 12/25
-hold off on addition of BB for now given significant depression history.
Progress Note - Top Cutter
Subjective
Date of Service: December 26, 2023
less chest discomfort overnight. no SOB
Objective
Labs:
12/26/23 05:02
12/26/23 05:02
Labs
Hgb 12.6 g/dL (12.0-16.0) 12/26/23 05:02
Hct 37.6 % (37.0-47.0) 12/26/23 05:02
Plt Count 289 10^3/uL (130-400) 12/26/23 05:02
Sodium 137 mmol/L (135-145) 12/26/23 05:02
Potassium 3.8 mmol/L (3.5-5.1) 12/26/23 05:02
BUN 7 mg/dl (7-17) 12/26/23 05:02
Creatinine 0.6 mg/dL (0.6-1.0) 12/26/23 05:02
Glucose 95 mg/dl (70-99) 12/26/23 05:02
Troponins
12/25/23 12/25/23 12/25/23
13:02 16:52 18:05
Troponin I 0.214 H* 0.163 H* 0.161 H*
Vital Signs and I&O:
Vital Signs
Temp Pulse Resp BP Pulse Ox
97.6 F 81 16 151/108 100
12/26/23 04:00 12/26/23 05:15 12/26/23 04:00 12/26/23 05:08 12/26/23 04:00
Vital Signs
Temp Pulse Resp BP Pulse Ox
97.6 F 81 16 151/108 100
12/26/23 04:00 12/26/23 05:15 12/26/23 04:00 12/26/23 05:08 12/26/23 04:00
Intake & Output
12/24/23 12/25/23 12/26/23 12/27/23
07:59 07:59 07:59 07:59
Intake Total 970 / 970
Balance 970 / 970
Physical Exam
Physical Exam
GEN: No distress, awake, alert, oriented x3
HEENT: supple, anicteric, mmm, eomi
LUNGS: CTA B/L, no wheezes/rales
CV: Reg, S1/S2, no murmur
ABD: soft, BS+, NT/ND
EXT: No cyanosis, clubbing, edema
NEURO: Gross non-focal
SKIN: Warm, pink, dry. No rash
--- NOTE | 2023-12-26 09:17 | CM ---
Reviewed chart. Met with Zbigniew Ovidio to review discharge plans. She states prior to admission she resides with her significant other and two children in a four story home with six steps to enter. She states her bedroom/full bathroom are on the
first floor. She states prior to admission she was independent with ambulation and adls. She states she has a prescription plan and uses [facility]. We reviewed if she wanted any formal program to address her substance use. Currently
she is declining any information on formal substance counseling at this time. Medical work-up in progress. The discharge plan is to return home with her significant other and her children when medically stable.
[2023-12-26 09:42] LABS: HDL Cholesterol 96 mg/dl; LDL Cholesterol, Calculated 41 mg/dl; Total Cholesterol 161 mg/dl (50-199); Triglyceride 122 mg/dl (10-149); Very Low Density Lipoprotein 24 mg/dl (0-30)
[2023-12-26] MEDS: LOW STRENGTH ASPIRIN 81 MG PO (10:26)
--- NOTE | 2023-12-26 11:08 | ITS.CL.CATH ---
Patient Financial Counselor - Catheterization
Cardiac Catheterization
Procedure Report:
LEFT HEART CATHETERIZATION
Date of Procedure: December 26, 2023
Referring: Tc Strickland
PROCEDURES:
1. Left heart catheterization, coronary angiogram.
2. Ultrasound-guided access
INDICATION: Chest pain with mild troponin elevation and abnormal EKG.
ACCESS: Right radial artery, 5 Hebrew sheath, under ultrasound guidance
HEMODYNAMICS : (mmHg)
AO (s/d) : 142/97
LV (s/d) : 147/4
LVEDP :12
CORONARY FINDINGS
DOMINANCE: Left
LEFT MAIN: The left main artery is a large-caliber, very short vessel which gives rise to the left anterior descending artery and the left circumflex artery. There is minimal luminal irregularities
LEFT ANTERIOR DESCENDING: The left anterior descending artery is a large-caliber vessel which gives rise to 2 major diagonal branches as it courses through the anterior interventricular groove towards the apex. Angiographically normal vessel.
CIRCUMFLEX: The left circumflex artery is a large-caliber, dominant vessel which gives rise to 1 major branching obtuse marginal branch, 1 small left posterolateral branch and the left PDA. Normal vessel angiographically.
RIGHT CORONARY ARTERY: The right coronary artery is a small caliber, nondominant vessel which is normal angiographically.
SEDATION: 24 minutes of procedural sedation was utilized. An independent medical terminologist was present to assist with and help manage the patient's level of consciousness and physiologic status.
RADIATION SUMMARY: Fluoro Time (min): 4.1, Dose (mGy): 206.38, DAP (Gy.cm2) : 16.9
Closure Device: Vascular band over right radial artery, 10 cc of air
CONCLUSIONS
1. No obstructive coronary artery disease.
2. Normal LVEDP
RECOMMENDATIONS
1. Wean radial band per protocol.
2. Strongly encourage recreational drug use cessation.
3. Management of cardiovascular risk factors.
Elsa H. Rodriguez, MD, FACC, [facility]
[2023-12-26] MEDS: NSS 1000 IV (11:36)
--- NOTE | 2023-12-26 12:40 | W.PN.HOSP.TC ---
Today's Communication/Plan
-
Monitor vital signs see plan
Catheterization today
Continue with antibiotics
Discussed UDS finding with the patient
Assessment / Plan
Assessment / Plan
General: Comfortable and Conversant
HEENT: Anicteric and Moist mucous membranes
Respiratory: Clear and Non Labored Respirations
Cardiac: S1/S2, Regular Rhythm and mild tenderness to palpation right upper chest
GI: Soft and Non Tender
Musculoskeletal: No Clubbing, No Cyanosis and No Edema
Neuro: Awake, Alert, Oriented and Nonfocal/grossly intact
Psych: Calm
Chest Pain suspect could be secondary to vasospasm or pneumonia
Mild troponin elevation likely secondary to nonischemic myocardial injury
Echocardiogram without any wall motion abnormality, cardiac catheterization today
Continue aspirin
UDS positive for cocaine, fentanyl and benzos. Patient denies cocaine however she took 'perc 30'
-ECG with some inverted T waves in III, V1 and V2
Troponin down trended
Sepsis likely secondary to pneumonia
Continue with ceftriaxone and azithromycin
Blood culture pending
Pro-Adelfo elevated
Legionella and Streptococcus antigen negative
CT scan with right upper lobe pneumonia
Mild LFT elevation
Monitor
Suppressed TSH
Normal free T4
Anxiety/Depression/PTSD
-Continue Xanax, Clonidine and Venlafaxine
Alcohol Use Disorder
-Continue thiamine and folic acid
-Continue alcohol withdrawal protocol
DVT proph: Lovenox
Code Status: Full Code
Anticipated Discharge: Within 24 hours
Subjective/Interval History
-
Date of Service: December 26, 2023
Feels chest discomfort is improving
Objective Data
-
Labs:
Laboratory Results
12/26/23
05:02
WBC 8.0
Hgb 12.6
Hct 37.6
Plt Count 289
Sodium 137
Potassium 3.8
Chloride 102
Carbon Dioxide 26
BUN 7
Creatinine 0.6
Glucose 95
Calcium 9.3
Vital Signs:
Vital Signs
Temp Pulse Resp BP Pulse Ox
98.2 F 79 16 150/108 99
12/26/23 07:00 12/26/23 10:15 12/26/23 07:00 12/26/23 08:20 12/26/23 07:00
I&O
12/25/23 12/26/23 12/27/23
06:59 06:59 06:59
Intake Total 970 / 970
Balance 970 / 970
[2023-12-26] MEDS: NORVASC 5 MG PO (15:11)
--- NOTE | 2023-12-26 15:57 | PTCARENOTE ---
Received pt from the laboratory phlebotomist at 1115. Right radial site w/ R band intact. Pt denies any chest pain. VSS. IVF's per MD order. Will monitor.
[2023-12-26] MEDS: LOVENOX 40 MG SC (17:24)
[2023-12-26] MEDS: ROCEPHIN 1000 MG IV (17:25)
[2023-12-26] MEDS: STERILE WATER FOR INJECTION 10 ML IV (17:25)
[2023-12-26] MEDS: ZITHROMAX INFUSION 250 IV (17:37)
--- NOTE | 2023-12-26 20:50 | PTCARENOTE ---
NSR, ST with ambulation. SBP 150s. MSAS 1. Right radial site WNL - c/d/i, + pulses/sensation. Assessment per nursing flowsheet. Possible d/c tomorrow.
[2023-12-26] MEDS: CATAPRES 0.100000000000000006 MG PO (21:00)
[2023-12-26] MEDS: EFFEXOR 75 MG PO (21:00)
[2023-12-27 03:15] VITALS: BP 143/106
[2023-12-27 03:56] LABS: % Basophils 0.6 % (0-2); % Eosinophils 0.6 % (0-6); % Immature Granulocytes 0.3 % (0-0.5); % Lymphocytes 30.4 % (20.5-51.1); % Monocytes 8.1 % (1.7-9.3); Absolute Lymphocytes 2.2 10^3/uL (1.2-3.4); Absolute Monocytes 0.6 10^3/uL (0.1-0.6); Absolute Neutrophils 4.3 10^3/uL (1.4-6.5); Hematocrit 37.2 % (37.0-47.0); Hemoglobin 12.7 g/dL (12.0-16.0); Mean Corp Hgb Conc. 34.1 g/dL (33.0-37.0); Mean Corpuscular Hgb 31.8 pg (27.0-31.0); Mean Platelet Volume 8.7 fL (7.4-10.4); Nucleated Red Blood Cells % 0 %; Platelet Count 306 10^3/uL (130-400); Red Cell Dist. Width 12.1 % (11.5-14.5); White Blood Cell Count 7.1 10^3/uL (4.8-10.8)
[2023-12-27 04:10] LABS: ALT (SGPT) 45 U/L (0-35); AST (SGOT) 45 U/L (14-36); Albumin 3.6 g/dl (3.5-5.0); Alkaline Phosphatase 61 U/L (38-126); Blood Urea Nitrogen 6 mg/dl (7-17); Calcium 9.3 mg/dl (8.4-10.2); Carbon Dioxide 23 mmol/L (22-30); Chloride 103 mmol/L (98-107); Estimated Creatinine Clearance 115 ml/min; Glucose 85 mg/dl (70-99); Potassium 4.1 mmol/L (3.5-5.1); Sodium 138 mmol/L (135-145); Total Bilirubin 0.4 mg/dl (0.2-1.3); Total Protein 6.6 g/dl (6.3-8.2); eGFR > 60.00
[2023-12-27 07:05] VITALS: BP 151/104
[2023-12-27] MEDS: FOLVITE 1 MG PO (08:24)
[2023-12-27] MEDS: NORVASC 5 MG PO (08:24)
[2023-12-27] MEDS: LOW STRENGTH ASPIRIN 81 MG PO (08:24)
[2023-12-27] MEDS: XANAX 0.5 MG PO (08:25)
[2023-12-27] MEDS: FLUSH (NSS) 1 FLUSH IV (08:25)
[2023-12-27] MEDS: THIAMINE INJECTION 200 MG IV (08:25)
--- NOTE | 2023-12-27 08:35 | PTCARENOTE ---
Received patient this morning resting in bed, stated she was unable to fall back asleep at 0300 and trying to sleep now. Remains in SR on the monitor in the 70's at rest, but got up to go to the bathroom and HR > 140. Denies any pain/afebrile, given
morning meds and attempting to go back to sleep.
--- NOTE | 2023-12-27 10:42 | W.PN.HOSP.TC ---
Today's Communication/Plan
-
monitor vitals
see plan
dc today on PO abx
time of discharge 37minutes
Assessment / Plan
Assessment / Plan
General: Comfortable and Conversant
HEENT: Anicteric and Moist mucous membranes
Respiratory: Clear and Non Labored Respirations
Cardiac: S1/S2, Regular Rhythm
GI: Soft and Non Tender
Musculoskeletal: No Clubbing, No Cyanosis and No Edema
Neuro: Awake, Alert, Oriented and Nonfocal/grossly intact
Psych: Calm
Chest Pain suspect could be secondary to vasospasm or pneumonia
Mild troponin elevation likely secondary to nonischemic myocardial injury
Echocardiogram without any wall motion abnormality, cardiac catheterization 12/25 without CAD
Continue aspirin
UDS positive for cocaine, fentanyl and benzos. Patient denies cocaine however she took 'perc 30'
-ECG with some inverted T waves in III, V1 and V2
Troponin down trended
Sepsis likely secondary to pneumonia
Continue with ceftriaxone and azithromycin, now feeling it is getting better. Transition to p.o. antibiotics
Blood culture NGTD
Pro-Adelfo elevated
Legionella and Streptococcus antigen negative
CT scan with right upper lobe pneumonia
HTN; no previous diagnosis
Started amlodipine, discussed with patient to check blood pressure closely outpatient and titrate medication with PCP
Mild LFT elevation
Monitor
Suppressed TSH
Normal free T4
Anxiety/Depression/PTSD
-Continue Xanax, Clonidine and Venlafaxine
Alcohol Use Disorder
-Continue thiamine and folic acid
-Continue alcohol withdrawal protocol
DVT proph: Lovenox
Code Status: Full Code
Anticipated Discharge: Today
Subjective/Interval History
-
Date of Service: December 27, 2023
denies pain
Objective Data
-
Labs:
Laboratory Results
12/27/23
03:21
WBC 7.1
Hgb 12.7
Hct 37.2
Plt Count 306
Sodium 138
Potassium 4.1
Chloride 103
Carbon Dioxide 23
BUN 6 L
Creatinine 0.5 L
Glucose 85
Calcium 9.3
Total Bilirubin 0.4
AST 45 H
ALT 45 H
Alkaline Phosphatase 61
Vital Signs:
Vital Signs
Temp Pulse Resp BP Pulse Ox
97.7 F 71 20 151/104 97
12/27/23 07:03 12/27/23 08:24 12/27/23 07:03 12/27/23 08:24 12/27/23 07:03
I&O
12/26/23 12/27/23 12/28/23
06:59 06:59 06:59
Intake Total 970 / 970 1768
Balance 970 / 970 1768
--- NOTE | 2023-12-27 10:51 | W.DCSUMMARY ---
Discharge Summary
Discharge Data
Date of Admission: 12/25/23
Date of Discharge: 12/27/23
-
Pending Results: No
Hospital Course
33-year-old female with past medical history of PTSD, depression, anxiety, alcohol use disorder came to the hospital with chest pain. Patient did had some admission EKG with inverted T waves and troponin elevation so was seen by cardiology.
Echocardiogram did not show any wall motion abnormality however given patient's symptoms she was taken for cardiac catheterization which did not show any signs of coronary artery disease. Patient UDS was positive for cocaine, fentanyl and
benzodiazepine. On CT scan patient also had right upper lobe pneumonia for which patient was started on IV antibiotics initially which was later transitioned to p.o. antibiotics. It was determined that patient's symptoms could likely be from
vasospasm and pneumonia. While patient was in the hospital she was also hypertensive so she was started on amlodipine. On discharge patient instructed to follow-up closely with primary care provider for further titration of blood pressure
medications. She also had suppressed TSH however T4 was normal. She was instructed to get repeat blood work done outpatient. Once patient symptoms improved, she was then discharged home with instructions to follow-up with all her physicians
outpatient.
Discharge Plan
-
Patient Disposition: Home (Routine Discharge)
Discharge Diagnosis/Procedures: Community-acquired pneumonia
Hypertension
Chest pain status post cardiac catheterization
Non ischemic myocardial injury troponin elevation
Diet: As tolerated
Activity: As tolerated
Driving Restrictions: As prior to admission
Bathing Restrictions: None
Stand Alone Forms: DC Instructions- Cath/EP Lab
Referrals:
Yeni Quintero PA-C [Specified Professional Personl] - 01/16/24 2:40 pm (You have a cardiology follow up appointment at the [place] office [address]. Please call with questions. )
Christopher Lara DO [Family Provider] - in less than 1 week
Prescriptions:
New
aspirin [Children's Aspirin] 81 mg Tablet,Chewable
81 mg PO DAILY Qty: 30 0RF
folic acid 1 mg Tablet
1 mg PO DAILY Qty: 30 0RF
thiamine HCl (vitamin B1) 100 mg Tablet
100 mg PO BID Qty: 60 0RF
amlodipine 5 mg Tablet
5 mg PO DAILY Qty: 30 0RF
cefdinir 300 mg capsule
300 mg PO BID Qty: 12 0RF
azithromycin 500 mg tablet
500 mg PO DAILY 6 Days Qty: 6 0RF
Continued
norgestimate-ethinyl estradiol [Sariah] 0.25-35 mg-mcg Tablet
1 tab PO DAILY
clonidine HCl 0.1 mg Tablet
0.1 mg PO HS
venlafaxine 75 mg Tablet
75 mg PO HS
alprazolam [Xanax] 0.5 mg Tablet
0.5 mg PO DAILY
Discharge Orders:
Discharge Patient (As Directed); Ordered 12/27/23
Ordered By: Sudhir Moya
Care Plan Goals
Care Plan Goals:
Problem: Readiness for enhanced knowledge related to diagnosis and treatment plan
Goal: Understand your diagnosis and treatment plan needs, including medications if applicable.
Instructions: Know your diagnosis, underlying causes and treatment plan options, including medications if applicable. Consult with your health care team to learn about your diagnosis and treatment plan, including medications if applicable.
Discharge Date and Time
Discharge Date/Time: 12/27/23 11:53
Print Language: KYRGYZ
--- NOTE | 2023-12-27 11:49 | PTCARENOTE ---
Seen by Dr. Moya and ok for discharge. Reviewed discharge instructions and follow up appointments and she states her understanding. The patient's car is here but she doesn't have her keys. Patient wanted to take an uber home and come back later
with her mother for her car. Ambulated with the patient to the lobby where uber van driver was waiting for her.
== END 2023-12-27 11:53 | disposition home or self-care (01) | DRG 286 ==
LOC: IVU 16:55
PROVIDERS: Internal Medicine Interventional Cardiology; Physician Assistant Medical; ADMITTING PHYSICIAN Internal Medicine; CONSULT PHYSICIAN Nuclear Medicine Nuclear Cardiology; EMERGENCY PHYSICIAN Emergency Medicine; FAMILY PHYSICIAN Family Medicine
PROC: B2111ZZ Fluoroscopy of Multiple Coronary Arteries using Low Osmolar Contrast (ICD-10-PCS; 2023-12-26)
PROC: B2151ZZ Fluoroscopy of Left Heart using Low Osmolar Contrast (ICD-10-PCS; 2023-12-26)
PROC: 4A023N7 Measurement of Cardiac Sampling and Pressure, Left Heart, Percutaneous Approach (ICD-10-PCS; 2023-12-26)
DX: I20.1 Angina pectoris with documented spasm (principal); A41.9 Sepsis, unspecified organism; J18.9 Pneumonia, unspecified organism; I5A Non-ischemic myocardial injury (non-traumatic); E87.1 Hypo-osmolality and hyponatremia; I31.9 Disease of pericardium, unspecified; Z11.52 Encounter for screening for COVID-19; F17.290 Nicotine dependence, other tobacco product, uncomplicated; F43.10 Post-traumatic stress disorder, unspecified; F32.A Depression, unspecified; F10.10 Alcohol abuse, uncomplicated; I10 Essential (primary) hypertension
CPT/HCPCS: 71275; 76937; 80048; 80053; 80061; 80306; 80307; 82077; 82607; 82746; 83735; 84145; 84439; 84443; 84484; 84703; 85025; 85027; 85379; 87040; 87449; 87811; 87899; 93005; 93306; 93458; 99152; 99153; 99291; 99406; C1894; Q9967